=== PATIENT | female | born 1960 | race Two or more races ===

== ENCOUNTER 2016-12-27 09:00 | Outpatient (CLI) | payer BC | END 2016-12-27 23:59 | disposition home or self-care (01) | LOC: WOU 09:00 | PROVIDERS: ATTEND Specialist | DX: T81.32XA Disruption of internal operation (surgical) wound, not elsewhere classified, initial encounter (principal); S86.011D Strain of right Achilles tendon, subsequent encounter; X58.XXXD Exposure to other specified factors, subsequent encounter; F31.32 Bipolar disorder, current episode depressed, moderate; Z79.899 Other long term (current) drug therapy; F17.210 Nicotine dependence, cigarettes, uncomplicated; E03.9 Hypothyroidism, unspecified | CPT/HCPCS: 87070-TC; A6209; A6402; G0463 ==

== ENCOUNTER 2016-12-28 08:00 | Outpatient (CLI) | payer BC | END 2016-12-28 23:59 | disposition home or self-care (01) | LOC: WOU 08:00 | PROVIDERS: ATTEND Podiatrist Foot & Ankle Surgery | DX: T81.89XD Other complications of procedures, not elsewhere classified, subsequent encounter (principal); R93.6 Abnormal findings on diagnostic imaging of limbs; S86.011S Strain of right Achilles tendon, sequela; X50.9XXS Other and unspecified overexertion or strenuous movements or postures, sequela; L03.115 Cellulitis of right lower limb; R60.0 Localized edema | CPT/HCPCS: 99213; A6402; G0463 ==

== ENCOUNTER 2017-01-03 08:30 | Outpatient (CLI) | payer BC | END 2017-01-03 23:59 | disposition home or self-care (01) | LOC: WOU 08:30 | PROVIDERS: ATTEND Podiatrist Foot & Ankle Surgery | DX: S86.011D Strain of right Achilles tendon, subsequent encounter (principal); X58.XXXD Exposure to other specified factors, subsequent encounter; R60.0 Localized edema; L03.90 Cellulitis, unspecified; E03.9 Hypothyroidism, unspecified; Z72.0 Tobacco use; F31.9 Bipolar disorder, unspecified; Z79.899 Other long term (current) drug therapy | CPT/HCPCS: A6402; G0463 ==